=== PATIENT | female | born 1955 | race Caucasian/White ===

== ENCOUNTER → 2024-01-15 10:12 | Outpatient (BNVA) | payer MEDICARE, BC, SELFPAY | PROVIDERS: PCP Family Medicine; Visit Provider Internal Medicine Rheumatology | DX: Z11.1 Encounter for screening for respiratory tuberculosis (principal); Z79.899 Other long term (current) drug therapy; M19.90 Unspecified osteoarthritis, unspecified site; M45.6 Ankylosing spondylitis lumbar region; R76.8 Other specified abnormal immunological findings in serum; M77.31 Calcaneal spur, right foot; M19.042 Primary osteoarthritis, left hand; M43.26 Fusion of spine, lumbar region; Z96.698 Presence of other orthopedic joint implants; M85.88 Other specified disorders of bone density and structure, other site; M47.899 Other spondylosis, site unspecified; M40.294 Other kyphosis, thoracic region | CPT/HCPCS: 36415; 72072; 72100; 73130; 73630; 80076; 82306; 82565; 85025; 85651; 86140; 86160; 86162; 86200; 86235; 86255; 86376; 86480; 86812; 99204 ==

== ENCOUNTER → 2024-06-23 13:46 | Outpatient (BNVA) | payer MEDICARE, BC, SELFPAY | PROVIDERS: PCP Family Medicine; Visit Provider Internal Medicine Rheumatology | DX: M06.041 Rheumatoid arthritis without rheumatoid factor, right hand (principal); M06.042 Rheumatoid arthritis without rheumatoid factor, left hand; R76.8 Other specified abnormal immunological findings in serum; Z79.899 Other long term (current) drug therapy; Z71.85 Encounter for immunization safety counseling | CPT/HCPCS: 99214 ==

== ENCOUNTER 2024-12-10 10:05 | Outpatient (CLI) | payer MEDICARE, BC, SELFPAY ==
[2024-12-10 11:25] LABS: Hematocrit 38.0 % (36-47); Hemoglobin 12.80 g/dL (11.27-16.99); Mean Corpuscular HGB Conc 33.7 g/dL (30-55); Mean Corpuscular Hemoglobin 31.8 pg (27-33); Mean Corpuscular Volume 94.3 fl (85-98); Nucleated Red Blood Cells % 0 %; Platelet Count 120 10^3/cmm (157-399); Red Blood Count 4.03 10^6/uL (3.85-5.65); White Blood Count 3.49 10^3/uL (3.29-11.43)
== END 2024-12-10 10:06 ==
LOC: LAB 10:07
PROVIDERS: PCP Family Medicine; Visit Provider Internal Medicine Rheumatology
DX: M06.011 Rheumatoid arthritis without rheumatoid factor, right shoulder (principal); M06.042 Rheumatoid arthritis without rheumatoid factor, left hand; R76.8 Other specified abnormal immunological findings in serum; Z79.899 Other long term (current) drug therapy; Z71.85 Encounter for immunization safety counseling; D69.6 Thrombocytopenia, unspecified
CPT/HCPCS: 36415; 85025; 99214